=== PATIENT | female | born 1995 | race American Indian/Alaskan Native ===

== ENCOUNTER 2017-01-03 11:39 | Emergency (ER) | payer SELFPAY ==
[2017-01-03 12:42] LABS: Basophils % (Auto) 0.9 % (0.0-1.8); Eosinophils % (Auto) 8.1 % (0.0-4.3); Hemoglobin 12.2 gm/dl (10.1-14.3); Mean Corpuscular HGB Conc 34 % (30-34); Mean Corpuscular Hemoglobin 31 pg (28-32); Mean Corpuscular Volume 91 fl (79-97); Platelet Count 267 K/mm3 (140-440); Red Blood Count 3.96 M/mm3 (3.65-5.03); Red Cell Distribution Width 14.3 % (13.2-15.2); White Blood Count 7.4 K/mm3 (4.5-11.0)
[2017-01-03 12:51] LABS: Bilirubin,Urine NEG (Negative); Blood,Urine SM (Negative); Ketones,Urine NEG (Negative); Leukocyte Esterase,Urine LG (Negative); Mucus,Urine 3+ /HPF; Nitrite,Urine NEG (Negative); Protein,Urine <15 mg/dL mg/dL (Negative); Urobilinogen,Urine < 2.0 mg/dL (<2.0)
[2017-01-03 12:51] LABS: Alanine Aminotransferase 6 units/L (7-56); Albumin 4.2 g/dL (3.9-5); Albumin/Globulin Ratio 1.6 %; Alkaline Phosphatase 44 units/L (35-129); Anion Gap 18 mmol/L; Bilirubin,Total 0.3 mg/dL (0.1-1.2); Blood Urea Nitrogen 9 mg/dL (7-17); Calcium 9.4 mg/dL (8.4-10.2); Carbon Dioxide 21 mmol/L (22-30); Chloride 101.8 mmol/L (98-107); Glucose 75 mg/dL (65-100); Lipase 24 units/L (13-60); Potassium 3.9 mmol/L (3.6-5.0); Sodium 137 mmol/L (137-145); Total Protein 6.9 g/dL (6.3-8.2)
--- NOTE | 2017-01-03 15:36 | Ultrasound Report ---
ULTRASOUND OB LESS THAN 14 WEEKS - TRANSABDOMINAL AND TRANSVAGINAL INDICATION: Abdominal pain, . Serum beta-hCG positive. COMPARISON: None similar. FINDINGS: Transabdominal and transvaginal pelvic sonography performed in this patient with LMP of 12/02/2016 and estimated menstrual age of 4 weeks and 4 days. Transabdominal images limited due to bowel gas. A retroverted 8.3 x 5.1 x 5.6 cm uterus demonstrates an endometrial thickness of 1.3 cm towards the fundus, endovaginal image 4. A small nonspecific cystic focus along the fundal endometrium as on image 8 measures 3 mm, corresponding to 5 weeks and zero days. No pole or cardiac activity identified at this time. Minimal pelvic free fluid. Unremarkable right ovary measuring 3.1 x 2.1 x 2.6 cm. Left ovary is 4.1 x 1.7 x 4 cm with an approximately 1.9 x 1.6 cm thick walled structure as on endovaginal images 19-20 with intrinsic vascularity, possibly the corpus luteum. CONCLUSION: 1. Sonographic findings may represent an early gestation estimated at 5 weeks and zero days with EDC of 09/05/2017. 2. Both ovaries identified, as above. Please also correlate clinically, with serial serum beta-hCG values and/or followup sonogram to confirm viability, as warranted. Thank you for the opportunity to participate in this patient's care.
--- NOTE | 2017-01-03 18:22 | Emergency Department Report ---
ED Abdominal Pain HPI - General Chief Complaint: Abdominal Pain Stated Complaint: ABD PAIN / Time Seen by Provider: 01/03/17 18:06 Source: patient, family Mode of arrival: Ambulatory Limitations: No Limitations - History of Present Illness Initial Comments: Patient here complaining of abdominal pain for 2 days. She said the pain is located in the pelvic area and it 7 out of 10 and cramping. Denies any back pain. Denies any nausea vomiting. Denies any fever or chills. Denies urinary burning, urgency but reports urinary frequency. Last menstrual period was 2016. When asked, she is able to tolerate solid or liquid food without any problems. Patient also reported that she is . Denies any vaginal bleeding or discharge. MD Complaint: abdominal pain Onset/Timin -: days(s) Location: LLQ (pelvic area), RLQ (pelvic area) Radiation: none Migration to: no migration Severity: moderate Severity scale (0 -10): 7 Quality: cramping Consistency: intermittent Improves With: nothing Worsens With: nothing Context: other (she is ) Associated Symptoms: denies: nausea, vomiting, diarrhea, fever, chills, constipation, dysuria, hematemesis, hematochezia, melena, hematuria, anorexia, syncope - Related Data LMP Date: 12/02/16 Previous Rx's Medication Instructions Recorded Last Taken Type Ibuprofen [Motrin] 600 mg PO Q6H PRN #20 tablet 07/25/13 Unknown Rx Methocarbamol [Robaxin] 750 mg PO BID #14 tab 07/25/13 Unknown Rx Ondansetron [Zofran Odt] 4 mg PO Q6H #14 tab.rapdis 12/06/14 Unknown Rx traMADol [Ultram] 50 mg PO Q6HR PRN #14 tablet 12/06/14 Unknown Rx Nitrofurantoin [place]/M-Cryst 100 mg PO Q12HR #14 capsule 01/03/17 Unknown Rx [Macrobid CAP] metroNIDAZOLE [Vandazole GEL] 10 applicator VG QHS #1 gel.w.appl 01/03/17 Unknown Rx Allergies Allergy/AdvReac Type Severity Reaction Status Date / Time citric acid Allergy Swelling Verified 01/03/17 12:09 ED Review of Systems ROS: Stated complaint: ABD PAIN / Other details as noted in HPI Comment: All other systems reviewed and negative Constitutional: denies: chills, fever ENT: denies: throat pain Respiratory: no symptoms reported Cardiovascular: denies: chest pain, palpitations, edema, syncope Gastrointestinal: abdominal pain. denies: nausea, vomiting, diarrhea, constipation Genitourinary: frequency. denies: urgency, dysuria, hematuria, discharge, abnormal menses Skin: denies: rash Neurological: denies: headache, weakness, numbness, paresthesias, abnormal gait , vertigo ED Past Medical Hx - Past Medical History Previous Medical History?: Yes Additional medical history: ANEMIA - Surgical History Past Surgical History?: Yes - Family History Family history: no significant - Social History Smoking Status: Never Smoker Substance Use Type: None - Medications Home Medications: Home Medications Medication Instructions Recorded Confirmed Last Taken Type Ibuprofen [Motrin] 600 mg PO Q6H PRN #20 tablet 07/25/13 Unknown Rx Methocarbamol [Robaxin] 750 mg PO BID #14 tab 07/25/13 Unknown Rx Ondansetron [Zofran Odt] 4 mg PO Q6H #14 tab.rapdis 12/06/14 Unknown Rx traMADol [Ultram] 50 mg PO Q6HR PRN #14 tablet 12/06/14 Unknown Rx Nitrofurantoin [place]/M-Cryst 100 mg PO Q12HR #14 capsule 01/03/17 Unknown Rx [Macrobid CAP] metroNIDAZOLE [Vandazole GEL] 10 applicator VG QHS #1 gel.w.appl 01/03/17 Unknown Rx ED Physical Exam - General Limitations: No Limitations General appearance: alert, in no apparent distress - Head Head exam: Present: atraumatic, normocephalic, normal inspection - Eye Eye exam: Present: normal appearance, PERRL, EOMI. Absent: periorbital swelling , periorbital tenderness Pupils: Present: normal accommodation - ENT ENT exam: Present: normal exam, normal orophraynx, mucous membranes moist, TM's normal bilaterally, normal external ear exam - Neck Neck exam: Present: normal inspection, full ROM. Absent: tenderness, lymphadenopathy - Respiratory Respiratory exam: Present: normal lung sounds bilaterally. Absent: respiratory distress, chest wall tenderness - Cardiovascular Cardiovascular Exam: Present: regular rate, normal rhythm, normal heart sounds - GI/Abdominal GI/Abdominal exam: Present: soft, normal bowel sounds. Absent: distended, tenderness, guarding, rebound, rigid, mass, bruit, hernia - External exam: Present: normal external exam. Absent: erythema, swelling, lesions, lacerations, ecchymosis, bleeding Speculum exam: Present: vaginal discharge, cervical discharge. Absent: erythema , vaginal bleeding, foreign body, tissue, laceration Bi-manual exam: Present: normal bi-manual exam. Absent: cervical motion tendernes, adnexal tenderness, adnexal mass, uterine enlargement, uterine tenderness - Expanded Exam Expanded Female exam: Absent: vaginal laceration, tissue present in vagina, herpetic lesions, vulvar erythema, vulvar tenderness, foreign body External exam: Present: normal Amniotic fluid: Present: none Speculum exam: Present: cervical OS closed - Extremities Exam Extremities exam: Present: normal inspection, full ROM, normal capillary refill. Absent: tenderness, pedal edema, joint swelling, calf tenderness - Back Exam Back exam: Present: normal inspection, full ROM. Absent: tenderness, CVA tenderness (R), CVA tenderness (L), muscle spasm, paraspinal tenderness, vertebral tenderness, rash noted - Neurological Exam Neurological exam: Present: alert, oriented X3, normal gait, reflexes normal. Absent: motor sensory deficit - Psychiatric Psychiatric exam: Present: normal affect, normal mood - Skin Skin exam: Present: warm, dry, intact, normal color. Absent: rash ED Course Vital Signs 01/03/17 01/03/17 11:57 18:27 Temperature 98.1 F 98.1 F Pulse Rate 58 L 120 H Respiratory 16 18 Rate Blood Pressure 116/71 Blood Pressure 112/75 [Right] O2 Sat by Pulse 99 97 Oximetry Vital Signs 01/03/17 01/03/17 01/03/17 11:57 18:27 20:45 Temperature 98.1 F 98.1 F Pulse Rate 58 L 120 H 82 Respiratory 16 18 Rate Blood Pressure 116/71 Blood Pressure 112/75 [Right] O2 Sat by Pulse 99 97 99 Oximetry - Reevaluation(s) Reevaluation #1: 01/03/17 20:18 Patient able to tolerate oral liquids in emergency room. Reevaluation of abdominal assessment reveals no new findings. ED Medical Decision Making - Lab Data Result diagrams: 01/03/17 12:08 01/03/17 12:08 Lab Results 01/03/17 01/03/17 01/03/17 Range/Units 12:08 12:08 18:17 WBC 7.4 (4.5-11.0) K/mm3 RBC 3.96 (3.65-5.03) M/mm3 Hgb 12.2 (10.1-14.3) gm/dl Hct 36.0 (30.3-42.9) % MCV 91 (79-97) fl MCH 31 (28-32) pg MCHC 34 (30-34) % RDW 14.3 (13.2-15.2) % Plt Count 267 (140-440) K/mm3 Lymph % (Auto) 26.7 (13.4-35.0) % [place] % (Auto) 4.7 (0.0-7.3) % Eos % (Auto) 8.1 H (0.0-4.3) % Baso % (Auto) 0.9 (0.0-1.8) % Lymph # 2.0 (1.2-5.4) K/mm3 [place] # 0.3 (0.0-0.8) K/mm3 Eos # 0.6 H (0.0-0.4) K/mm3 Baso # 0.1 (0.0-0.1) K/mm3 Seg Neutrophils % 59.6 (40.0-70.0) % Seg Neutrophils # 4.4 (1.8-7.7) K/mm3 Sodium 137 (137-145) mmol/L Potassium 3.9 (3.6-5.0) mmol/L Chloride 101.8 (98-107) mmol/L Carbon Dioxide 21 L (22-30) mmol/L Anion Gap 18 mmol/L BUN 9 (7-17) mg/dL Creatinine 0.5 L (0.7-1.2) mg/dL Estimated GFR > 60 ml/min BUN/Creatinine Ratio 18.00 % Glucose 75 (65-100) mg/dL Calcium 9.4 (8.4-10.2) mg/dL Total Bilirubin 0.3 (0.1-1.2) mg/dL AST 13 (5-40) units/L ALT 6 L (7-56) units/L Alkaline Phosphatase 44 (35-129) units/L Total Protein 6.9 (6.3-8.2) g/dL Albumin 4.2 (3.9-5) g/dL Albumin/Globulin Ratio 1.6 % Lipase 24 (13-60) units/L HCG, Quant 929.6 H (0-4) mIU/mL Urine Color (Yellow) Urine Turbidity (Clear) Urine pH (5.0-7.0) Ur Specific [place] (1.003-1.030) Urine Protein (Negative) mg/dL Urine Glucose (UA) (Negative) mg/dL Urine Ketones (Negative) mg/dL Urine Blood (Negative) Urine Nitrite (Negative) Urine Bilirubin (Negative) Urine Urobilinogen (<2.0) mg/dL Ur Leukocyte Esterase (Negative) Urine WBC (Auto) (0.0-6.0) /HPF Urine RBC (Auto) (0.0-6.0) /HPF U Epithel Cells (Auto) (0-13.0) /HPF Urine Mucus /HPF Urine HCG, Qual (Negative) 01/03/17 Range/Units Unknown WBC (4.5-11.0) K/mm3 RBC (3.65-5.03) M/mm3 Hgb (10.1-14.3) gm/dl Hct (30.3-42.9) % MCV (79-97) fl MCH (28-32) pg MCHC (30-34) % RDW (13.2-15.2) % Plt Count (140-440) K/mm3 Lymph % (Auto) (13.4-35.0) % [place] % (Auto) (0.0-7.3) % Eos % (Auto) (0.0-4.3) % Baso % (Auto) (0.0-1.8) % Lymph # (1.2-5.4) K/mm3 [place] # (0.0-0.8) K/mm3 Eos # (0.0-0.4) K/mm3 Baso # (0.0-0.1) K/mm3 Seg Neutrophils % (40.0-70.0) % Seg Neutrophils # (1.8-7.7) K/mm3 Sodium (137-145) mmol/L Potassium (3.6-5.0) mmol/L Chloride (98-107) mmol/L Carbon Dioxide (22-30) mmol/L Anion Gap mmol/L BUN (7-17) mg/dL Creatinine (0.7-1.2) mg/dL Estimated GFR ml/min BUN/Creatinine Ratio % Glucose (65-100) mg/dL Calcium (8.4-10.2) mg/dL Total Bilirubin (0.1-1.2) mg/dL AST (5-40) units/L ALT (7-56) units/L Alkaline Phosphatase (35-129) units/L Total Protein (6.3-8.2) g/dL Albumin (3.9-5) g/dL Albumin/Globulin Ratio % Lipase (13-60) units/L HCG, Quant (0-4) mIU/mL Urine Color [place] (Yellow) Urine Turbidity Clear (Clear) Urine pH 5.0 (5.0-7.0) Ur Specific [place] 1.027 (1.003-1.030) Urine Protein <15 mg/dl (Negative) mg/dL Urine Glucose (UA) Neg (Negative) mg/dL Urine Ketones Neg (Negative) mg/dL Urine Blood Sm (Negative) Urine Nitrite Neg (Negative) Urine Bilirubin Neg (Negative) Urine Urobilinogen < 2.0 (<2.0) mg/dL Ur Leukocyte Esterase Lg (Negative) Urine WBC (Auto) 13.0 H (0.0-6.0) /HPF Urine RBC (Auto) 7.0 (0.0-6.0) /HPF U Epithel Cells (Auto) 18.0 H (0-13.0) /HPF Urine Mucus 3+ /HPF Urine HCG, Qual Positive A (Negative) Urine culture pending Wet Prep positive for bacterial vaginosis, negative Trichomonas and negative yeast Gonorrhea and chlamydia is pending - Radiology Data Radiology results: report reviewed Ultrasound abdomen or be less than 14 weeks transabdominal and transvaginal revealed sonographic findings may represent an early gestational estimated at 5 weeks and 0 days. EDC at 09/05/2017. Ovaries are identified right ovary is normal. Left ovary with 4.1 x 1.7 x 4 cm with an approximately 1.9 x 1.6 cm thick-walled structure with intrinsic vascularity, possible corpus Luteum. Minimal pelvic fluid. No pole or cardiac activity identified at this time. This needs to be confirmed with serial beta hCG values and/or follow -up sonogram to confirm viability. - Medical Decision Making ED course: Patient with abdominal pain in early . Ultrasound shows a gestational estimated at 5 weeks and 0 days. Radiologist recommended that patient follow up with serial beta hCG and or sonogram to confirm viability. Beta hCG is 929.6 which puts her at 5 weeks. Patient also with urinary tract infection. Culture sent and pending. Her CBC and chemistry are stable. She is able to tolerate liquids without any problems. She does not have a CAD INTERN as yet and she said she was schedule an appointment. I discussed with patient her lab results, ultrasound results, urinalysis and wet prep results. I instructed her that gonorrhea and chlamydia tests takes 5 days and her urine culture will take approximately the same time. Patient to schedule an appointment with her kier tender tomorrow for follow-up beta hCG and sonogram. Patient discharged home in stable condition. She was given prescription for Macrobid and MetroGel to treat BV. Critical care attestation.: If time is entered above; I have spent that time in minutes in the direct care of this critically ill patient, excluding procedure time. ED Disposition Clinical Impression: Bacterial vaginosis, Acute cystitis with hematuria Abdominal pain during Qualifiers: Trimester: first trimester Qualified Code(s): O26.891 - Other specified related conditions, first trimester; R10.9 - Unspecified abdominal pain Disposition: DISCHARGED TO HOME OR SELFCARE Is pt being admited?: No Does the pt Need Aspirin: No Condition: Stable Instructions: Abdominal Pain (ED), Bacterial Vaginosis (ED), Urinary Tract Infection in Women (ED) Additional Instructions: Pleasecall kier tender tomorrow to schedule an appointment for follow-up visit. You will need repeat ultrasound and repeat blood test. Take antibiotic as prescribed Please see MetroGel to treat bacterial vaginosis Please increase her fluid intake to 2-3 L of fluid per day. Prescriptions: metroNIDAZOLE [Vandazole GEL] 10 applicator VG QHS #1 gel.w.appl Nitrofurantoin [place]/M-Cryst [Macrobid CAP] 100 mg PO Q12HR #14 capsule Referrals: [facility] [Provider Group] - 01/05/17 Forms: STI Treatment and Prevention, Accompanied Note, Work/School Release Form (ED)
[2017-01-03 18:29] VITALS: BP 112/75
== END 2017-01-03 20:59 | disposition home or self-care (01) ==
LOC: ED 11:39
DX: O23.591 Infection of other part of genital tract in pregnancy, first trimester (principal); N76.0 Acute vaginitis; N30.01 Acute cystitis with hematuria; B96.89 Other specified bacterial agents as the cause of diseases classified elsewhere; Z3A.01 Less than 8 weeks gestation of pregnancy; Z88.8 Allergy status to other drugs, medicaments and biological substances
CPT/HCPCS: 36415; 76801; 76817; 80053; 81001; 81025; 83690; 84702; 85025; 87086; 87210; 87591